=== PATIENT | male | born 1950 | race Two or more races ===

== ENCOUNTER 2022-05-16 04:32 | Emergency (ER) | payer OTHER ==
[~2022-05-16] VITALS: Ht 165.1 cm; Wt 72.6 kg
[2022-05-16] MEDS ORDERED: VALSARTAN160 MG PO (04:59)
[2022-05-16] MEDS ORDERED: NORFLEX100MG PO ×2 (06:10→06:11)
[2022-05-16] MEDS ORDERED: NABUMETONE750 MG PO (06:10)
== END 2022-05-16 06:14 ==
LOC: ER 04:32
DX: M54.50 Low back pain, unspecified (principal); M51.36 Other intervertebral disc degeneration, lumbar region; I10 Essential (primary) hypertension

== ENCOUNTER 2022-05-16 21:28 | Inpatient (IN) | payer OTHER ==
[~2022-05-16] VITALS: Ht 177.8 cm; Wt 89.4 kg
[~2022-05-16 21:28] MED LIST: NABUMETONE750 MG PO; NORFLEX100MG PO; VALSARTAN160 MG PO
--- NOTE | 2022-05-16 21:52 | NUR ---
PATIENT IS RECIEVED ALERT AND ORIENTED IN PERSON AND NOT TIME AND PLACE. PATIENT IS BROUGHT IN AMBULANCE UNIT VOMITTING COFFEE GROUNDS AND BLOOD. PARAMEDICS SAY THE PATIENT STARTED VOMITTING 4 HOURS AGO AND SAY HE WAS DISCHARGED FROM ER EARLIER THIS MORNING FOR BACK PAIN.
--- NOTE | 2022-05-17 04:58 | NUR ---
11:00PM SE RECIBE PTE ALERTA Y ORIENTADO X3 PTE AL MOMENTO SE ENCUENTRA EN POSICION SEMIFOWLER EN COMPANIA DE FAMILIAR, PTE AL MOMENTO ESTA CONECTADO A MONITOR CARDIACO Y OXIMETRIA. PTE TIENE 3 VENOPUNCION #18 SE OBSERVA AREA TYRA EDEMAS Y ENROJECIMIENTO. SE JATINDER LINDA POR ALGUN CAMBIO SIGNIFICATIVO. 00:00 SE DA LINDA PREVENTIVAS Y REALIZA CIPRIAON A PTE EN CAMA. SE [facility] YA QUE PTE VOMITO TODA LA ROPA. SE ORIENTA PTE Y REFIERE ENTENDER. DR. FAULKNER ORDENA A COLOR TRIDIL BAJANDO 3 ML/HR. . SE DA LINDA PREVENTIVA Y PTE ESTABLE AL MOMENTO DE CATHERINE LA LINDA. 01:00 SE DA LINDA PREVENTIVA Y SE REALIZA CAMBIO DE POSICION PTE PRESENTE AL MOMENTO DE LA INTERVECION. SE ORIENTA FAMILIAR REFIERE ENTENDER. 01:30 SE DA LINDA PREVENTIVA Y SE REALIZA LA NATANAEL DE PTT. 02:15 SE JATINDER LINDA PREVENTIVA Y SE OBERVA PTE SIN NINGUNA NOVEDAD ALARMANTE. 03:00 SE REALIZA CAMBIO DE POSICION, PTE ESTABLE AL MOMENTO DE LA LINDA. 03:50 SE JATINDER LINDA PREVENTIVA Y PTE SE OBSERBA PTE SIN PULSO SE EMPIEZA CODIGO Y SE LLAMA 03:50AM CON LA PRIMERA EPI DONALDSON 03:55AM SEGUNDA EPI DONALDSON 04:00 3RA EPI, AL MOMENTO TODO EL PERSONAL DE TERAPIA GUTIERREZ PRESENTE. ANESTESIA CHEEMA LLEGA DONALDSON 04:11AM Y ENTUBA PTE CON UN TUBO OROTRAQUEAL #7 Y FIJADO HASTA 23 SE REALIZO LA FINALIZACION DEL TUBO 04:17AM, DR. WADE GARZA COLOCAR UN TUVO SANOGATRICO #18 Y ROSEMARY VALENTE COLOCA Y SE CONECTA A SUBCION INTERMITENTE.AL MOMENTO DE LA CLAVE SUP. GENERAL ROHENA. 04:49 SE DA SEGUIMIENTO A PTE Y SE ESTABLECE PARAMETROS AL VENTILADOR MECANICO. 05:28 SE REALIZA LINDA PREVENTIVA Y PTE ESTABLE DENTRO DE LA CONDICION.
== END 2022-05-17 21:01 | disposition expired | DRG 377 ==
LOC: ER 21:28 → ICU-2 05-17 09:06 → ICU 05-17 13:34
PROVIDERS: ADMIT Internal Medicine; ATTEND Internal Medicine
PROC: BW21ZZZ Computerized Tomography (CT Scan) of Abdomen and Pelvis (ICD-10-PCS; 2022-05-16)
PROC: 4A033R1 Measurement of Arterial Saturation, Peripheral, Percutaneous Approach (ICD-10-PCS; 2022-05-16)
PROC: 0D9670Z Drainage of Stomach with Drainage Device, Via Natural or Artificial Opening (ICD-10-PCS; principal; 2022-05-17)
PROC: 0BH17EZ Insertion of Endotracheal Airway into Trachea, Via Natural or Artificial Opening (ICD-10-PCS; 2022-05-17)
PROC: 5A1935Z Respiratory Ventilation, Less than 24 Consecutive Hours (ICD-10-PCS; 2022-05-17)
DX: K92.2 Gastrointestinal hemorrhage, unspecified (principal); J18.1 Lobar pneumonia, unspecified organism; I46.9 Cardiac arrest, cause unspecified; Z20.822 Contact with and (suspected) exposure to COVID-19